=== PATIENT | male | born 1985 | race Caucasian/White ===

== ENCOUNTER 2016-11-02 16:25 | Emergency (ER) | payer SELFPAY ==
--- NOTE | 2016-11-02 20:46 | ER NURSING DOCUMENTATION ---
Nurse's Notes [facility] Name:Andrei Hager Age:31 yrs Sex:Male :1985 Arrival Date:11/02/2016 Time:16:25 Bed1 Private MD: Diagnosis:Thrombosed Hemorrhoids Presentation: 11/02 17:01 Presenting complaint: Patient states: EXTERNAL HEMMROIDS THAT HAVE TRIPLED IN SIZE. lc Transition of care: patient was not received from another setting of care. 17:01 Method Of Arrival: Private Vehicle 17:01 Acuity: YESSICA 4 lc Triage Assessment: 17:08 General: Appears uncomfortable, Behavior is appropriate for age, cooperative. Pain: lc Complains of pain in RECTUM Pain At worst was 9 out of 10 on a pain scale. Neuro: Level of Consciousness is awake, alert, Oriented to person, place, time, event. Derm: Skin is pink, warm & dry. Historical: - Allergies: No known drug Allergies; - Home Meds: 1. Adderall XR Oral - PMHx: SLEEP APNEA; - PSHx: None; - Tetanus: < 10 years. - Ebola Screening: : Patient denies travel to an Ebola-affected area in the 21 days before illness onset. No symptoms or risks identified at this time. . - Immunization history: Flu Vaccine >1 year. - Social history: Smoking status: Patient uses tobacco products, current every day smoker. Screenin:09 Infectious Disease Risk None. Abuse screen: Denies threats or abuse. Denies injuries lc from another. Nutritional screening: No deficits noted. Assessment: 17:09 See Triage Assessment done by same RN. 19:16 Reassessment: Patient appears in no apparent distress at this time. DR JERNIGAN HERE, IV lc STARTED, OR CREW COMING FOR EQUIPMENT. 20:17 Reassessment: PROCEDURE DONE PER SURGEON, TOLERATED WELL. VSS, PACKING IN PLACE. lc SITTING AT SIDE OF BED NOW, TAKING PO FLUIDS.. Vital Signs: 17:09 Pain 9/10; lc 17:32 BP 156 / 91; Pulse 78; Resp 16; Temp 97.8; Pulse Ox 97% on R/A; Weight 138.35 kg; lc Height 6 ft. 4 in. (193.04 cm); Pain 8/10; 19:52 Pulse 93 MON; Resp 16; Pulse Ox 99% ; lc 19:55 BP 129 / 57; Pulse 94; Resp 16; Pulse Ox 99% on 2 lpm NC; Pain 6/10; lc 19:55 BP 133 / 72 (auto/); lc 20:02 Pulse 115 MON; Resp 21; Pulse Ox 98% ; lc 20:05 BP 133 / 63 (auto/); lc 20:07 Pulse 105 MON; Resp 9; Pulse Ox 97% ; lc 20:10 BP 143 / 58 (auto/); lc 20:45 BP 141 / 62; Pulse 80; Resp 18; Pulse Ox 95% ; bw2 17:32 Body Mass Index 37.13 (138.35 kg, 193.04 cm) ED Course: 16:27 Patient arrived in ED. ama 17:01 Juanita Rodriguez, RN is Primary Nurse. 17:02 Triage completed. 17:09 Valuables Remains with patient. 17:09 Patient has correct armband on for positive identification. 18:10 Inserted peripheral IV: 18 gauge in left antecubital area. 18:49 Manolo Bates MD is Attending Physician. tl1 19:30 Oxygen Oxygen administration via nasal cannula @ 2L/min. 20:17 Assist Provider Assist provider with I & D: of an abscess on external hemorrhoid. Administered Medications: 19:30 Drug: NS 0.9% 500 ml; Route: IV; Rate: bolus; Site: left antecubital; 20:30 Follow up: IV Status: Completed infusion; IV Intake: 500ml 19:54 Drug: Ketamine 35 mg; Route: IVP; Infused Over: 2 mins; Site: left antecubital; 20:15 Follow up: Response: Pain is decreased 20:44 Drug: Percocet Tablet (5 mg-325 mg) 6 tabs; Route: PO; bw2 20:44 Follow up: Response: Pharmacy closed - take home med pack bw2 Intake: 20:30 IV: 500ml; Total: 500ml. Outcome: 20:39 Discharge ordered by . 20:45 Discharged to home ambulatory. bw2 20:45 Condition: good 20:45 Discharge Assessment: Patient awake, alert and oriented x 3. No cognitive and/or functional deficits noted. Patient verbalized understanding of disposition instructions. 20:45 Discharge instructions given to patient, Instructed on discharge instructions, follow up and referral plans. medication usage, Demonstrated understanding of instructions, medications, Prescriptions given X 1. 20:46 Patient left the ED. bw2 Signatures: Juanita Rodriguez RN RN lc Meyer, John, MD MD jm Averdick, Andrew, Reg Reg ama Leigh, Tom, MD MD 1 Maribel Rogersh bw2
--- NOTE | 2016-11-02 20:47 | ER PHYSICIAN DOCUMENTATION ---
Physician Documentation [facility] Name:Andrei Hager Age:31 yrs Sex:Male :1985 Arrival Date:11/02/2016 Time:16:25 Bed1 Private MD: Manool Ruffin Disposition: 11/04 07:20 Chart complete. tl1 Disposition: 11/02/16 20:39 Discharged to Home/Self Care. Impression: Thrombosed Hemorrhoids. - Condition is Good. - Discharge Instructions: HEMORRHOIDS. - Prescriptions for Percocet 5- 325 mg Oral Tablet - take 1 tablet by ORAL route every 6 hours As needed; 20 tablet. - Medical Reconciliation form form. - Follow up: Private Physician; When: As needed; Reason: Continuance of care. - Problem is new. - Symptoms have improved. - Notes: Shower frequenty. Use a donut pillow if you need it. Take a stool softener for a month. HPI: 11/02 19:14 This 31 yrs old Male presents to ER via Private Vehicle with complaints of jm Hemorrhoids - EXTERNAL. 19:14 The patient presents to the emergency department with pain in the rectal area, that is jm severe. Onset: The symptom(s)/episode began/occurred today. Context: the patient has a known history of hemorrhoids. Historical: - Allergies: No known drug Allergies; - Home Meds: 1. Adderall XR Oral - PMHx: SLEEP APNEA; - PSHx: None; - Tetanus: < 10 years. - Ebola Screening: : Patient denies travel to an Ebola-affected area in the 21 days before illness onset. No symptoms or risks identified at this time. . - Immunization history: Flu Vaccine >1 year. - Social history: Smoking status: Patient uses tobacco products, current every day smoker. ROS: 19:15 Constitutional: Negative for chills, fatigue, fever. jm 19:15 Abdomen/GI: Positive for rectal pain. Exam: 19:15 Abdomen/GI: Palpation: abdomen is soft and non-tender, Rectal exam: hemorrhoid(s), jm external, with inflammation, with pain, large hemorrhoid. . 19:15 Neuro: Mentation: is normal, Memory: is normal. Vital Signs: 17:09 Pain 9/10; lc 17:32 BP 156 / 91; Pulse 78; Resp 16; Temp 97.8; Pulse Ox 97% on R/A; Weight 138.35 kg; lc Height 6 ft. 4 in. (193.04 cm); Pain 8/10; 19:52 Pulse 93 MON; Resp 16; Pulse Ox 99% ; lc 19:55 BP 129 / 57; Pulse 94; Resp 16; Pulse Ox 99% on 2 lpm NC; Pain 6/10; lc 19:55 BP 133 / 72 (auto/); lc 20:02 Pulse 115 MON; Resp 21; Pulse Ox 98% ; lc 20:05 BP 133 / 63 (auto/); lc 20:07 Pulse 105 MON; Resp 9; Pulse Ox 97% ; lc 20:10 BP 143 / 58 (auto/); lc 20:45 BP 141 / 62; Pulse 80; Resp 18; Pulse Ox 95% ; bw2 17:32 Body Mass Index 37.13 (138.35 kg, 193.04 cm) MDM: 18:49 Patient medically screened. tl1 19:16 Differential diagnosis: hemorrhoids. Data reviewed: vital signs, nurses notes, and as a result, I will initiate a consult, with a general surgeon. Counseling: I had a detailed discussion with the patient and/or guardian regarding: the historical points, exam findings, and any diagnostic results supporting the discharge/admit diagnosis. Physician consultation: Enrrique Barker MD regarding need to come to ED to see patient, and will see patient immediately. 20:00 ED course: Dr. Barker performed hemorrhoidectomy in the room. . 11/02 19:49 Order name: Oxygen; Complete Time: 19:55 11/02 19:49 Order name: Pulse Ox Continuous; Complete Time: 19:55 11/02 19:55 Order name: Continuous Cardiac Monitoring; Complete Time: 20:15 Dispensed Medications: 19:30 Drug: NS 0.9% 500 ml; Route: IV; Rate: bolus; Site: left antecubital; 20:30 Follow up: IV Status: Completed infusion; IV Intake: 500ml 19:54 Drug: Ketamine 35 mg; Route: IVP; Infused Over: 2 mins; Site: left antecubital; 20:15 Follow up: Response: Pain is decreased 20:44 Drug: Percocet Tablet (5 mg-325 mg) 6 tabs; Route: PO; bw2 20:44 Follow up: Response: Pharmacy closed - take home med pack bw2 Signatures: Juanita Rodriguez RN RN Armando Ferrera MD MD jm Leigh, Tom, MD MD tl1 Anya Rogers bw2
== END 2016-11-02 20:46 | disposition home or self-care (01) ==
LOC: ER 16:25
DX: K64.5 Perianal venous thrombosis (principal); Z79.899 Other long term (current) drug therapy; F17.210 Nicotine dependence, cigarettes, uncomplicated
CPT/HCPCS: 46083; 96361; 96374; 99284